=== PATIENT | female | born 2000 | race Two or more races ===

== ENCOUNTER 2024-12-11 17:20 | Emergency (ER) | payer OTHER, SELFPAY ==
[2024-12-11 17:21] VITALS: BMI 19.7
[2024-12-11 18:28] VITALS: BP 110/69; PULSE 80; RESP 18; TEMP 36.6; O2SAT 99
--- NOTE | 2024-12-11 18:36 | XR_ITS ---
Examination: Fingers, right hand second digit 3 views Technique: AP, oblique, lateral views right hand second digit 3 views. Exam date and time: December 11, 2024 1853 hrs. Indications: Basketball injury to the hand today with second digit pain. Findings: Acute 2 mm chip fracture, volar base middle phalanx second digit No dislocation Impression: Acute chip fracture base middle phalanx second digit
--- NOTE | 2024-12-11 18:42 | PD.EDHAND ---
Upper Extremity Injury RME/HPI General Chief Complaint: Hand/Wrist Problems Stated Complaint: RIGHT INDEX FINGER SPRAIN AT WORK Time Seen by Provider: 12/11/24 18:36 Arrival date/time: 12/11/24 17:20 24F with no significant PMH presents to ED with R index finger pain after a basketball jammed into it at work. Limitations: no limitations Related Data Previous Rx's ?Medication ?Instructions ?Recorded ferrous sulfate, dried 160 mg (50 160 mg PO TID #90 tabs 02/20/24 mg iron) tablet,extended release Allergies Allergy/AdvReac Type Severity Reaction Status Date / Time No Known Allergies Allergy Verified 12/11/24 17:23 Review of Systems Review of Systems Systems Reviewed: All systems reviewed, normal except as documented Constitutional Constitutional: Reports system reviewed and no additional complaints, except as documented, Denies fever(s) and Denies headache(s) ENT Ears, Nose, Mouth, and Throat: Denies disequilibrium and Denies headache(s) Cardiovascular Cardiovascular: Reports system reviewed and no additional complaints, except as documented, Denies chest pain and Denies dyspnea Respiratory Respiratory: Reports system reviewed and no additional complaints, except as documented, Denies cough and Denies dyspnea Gastrointestinal Gastrointestinal: Reports system reviewed and no additional complaints, except as documented, Denies abdominal pain, Denies nausea and Denies vomiting Musculoskeletal Musculoskeletal: Reports as per HPI and Reports arthralgias Neurologic Neurologic: Reports system reviewed and no additional complaints, except as documented, Denies confusion, Denies disequilibrium and Denies headache(s) Psychiatric Psychiatric: Denies confusion Past Medical History Past Medical History CARDIAC: Negative Cardiac Disorders or Congestive Heart Failure RESPIRATORY: Negative Chronic Obstructive Pulmonary Disease (COPD) or Asthma GASTROINTESTINAL: Positive Gastrointestinal Disorders (hiatal hernia) GENITOURINARY: Negative Renal Disease ENDOCRINE: Negative Diabetes Mellitus Type 1 or Diabetes Mellitus Type 2 HEMATOLOGIC: Negative Sickle Cell Disease Surgical History SURGICAL: Positive 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) Social History SMOKING STATUS: Never smoker ED Exam General Limitations: Present no limitations General appearance: Present alert and in no apparent distress Head Head exam: Present atraumatic Eye Eye exam: Present normal appearance, PERRL and EOMI ENT ENT exam: Present normal exam, normal oropharynx and mucous membranes moist Neck Neck exam: Present normal inspection, full ROM and trachea midline Chest Chest inspection: Present normal inspection and symmetric chest wall rise Respiratory Respiratory exam: Present normal lung sounds bilaterally Cardiovascular Cardiovascular exam: Present regular rate, normal rhythm and normal heart sounds Abdominal Exam Abdominal exam: Present soft and normal bowel sounds Extremities Exam Extremities exam: Present full ROM Expanded Upper Extremity Exam Hand exam: Present full ROM (R index), tenderness, swelling and ecchymosis Back Exam Back exam: Present normal inspection and full ROM Neurological Exam Neurological exam: Present alert, oriented X3 and CN II-XII intact Psychiatric Psychiatric exam: Present normal affect and normal mood Skin Skin exam: Present warm, dry, intact and normal color Course Quality Measures none Orders Category Date Time Status XR finger RT min 2V Stat Exams 12/11/24 18:36 Ordered Vital Signs Vital signs: Vital Signs Temperature 98 F 12/11/24 18:28 Pulse Rate 80 12/11/24 18:28 Respiratory Rate 18 12/11/24 18:28 Blood Pressure 110/69 12/11/24 18:28 Pulse Oximetry (%) 99 12/11/24 18:28 Oxygen Delivery Method Room Air 12/11/24 18:28 O2 at 99% on RA and WNLs Extremity Injury MDM Narrative MDM Narrative:: 24F with no significant PMH presents to ED with R index finger pain after a basketball jammed into it at work. Physical exam reveals R index finger swelling, bruising, and tenderness. ROM mostly intact. Patient is afebrile, calm, and alert. Patient data External records reviewed:: [facility] previous records Clinical information provided by:: patient Social determinants that could affect healthcare access:: none Patient has the following chronic illnesses:: none How is presenting disease/condition affected by chronic disease/condition?: no chronic disease Evaluation data The following diagnostics were reviewed and interpreted by me:: radiology exam(s) Lab and/or radiology exams considered but not ordered:: ordered Interpretation Summary: above Medications / Prescriptions Medications or Prescriptions considered but not ordered:: not ordered Medication administrations:: n/a Consultations Consultation(s) initiated? (list below): No Diagnosis Upper Extremity Injury Differential Diagnosis: sprain and strain of wrist, fracture of wrist, finger sprain, dislocation of finger, Colles' fracture, fracture of hand and other (finger fx) Admission Indicated Admission indicated?: not indicated Admission Request Was there a request for admission?: No Disposition Plan Disposition Plan: Discharge Discharge Attestation Discharge Attestation: The patient and all family members were given an opportunity to ask questions and understood the discharge instructions. Discharge instructions specifically effects, indications for sooner follow up or return to the emergency department, and the expected course of current diagnosis. Patient condition: Stable Discharge Plan Prescriptions/Referrals Prescriptions/Med Rec: No Action ferrous sulfate, dried 160 mg (50 mg iron) tablet extended release 160 mg PO TID Qty: 90 0RF Patient/Caregiver Discharge Instructions Print Language: Bhutanese
--- NOTE | 2024-12-11 18:49 | PD.EDRME ---
Rapid Medical Screening Exam RME Arrival date/time: 12/11/24 17:20 24F with no significant PMH presents to ED with R index finger pain after a basketball jammed into it at work. Patient wants to see another provider. Chief Complaint: Hand/Wrist Problems Time Seen by Provider: 12/11/24 18:36 Vital signs: Vital Signs Temperature 98 F 12/11/24 18:28 Pulse Rate 80 12/11/24 18:28 Respiratory Rate 18 12/11/24 18:28 Blood Pressure 110/69 12/11/24 18:28 Pulse Oximetry (%) 99 12/11/24 18:28 Oxygen Delivery Method Room Air 12/11/24 18:28
[2024-12-11 20:10] VITALS: BP 112/80; PULSE 76; RESP 17; TEMP 36.8; O2SAT 100
--- NOTE | 2024-12-11 22:47 | PD.EDHAND ---
Upper Extremity Injury RME/HPI General Chief Complaint: Hand/Wrist Problems Stated Complaint: RIGHT INDEX FINGER SPRAIN AT WORK Time Seen by Provider: 12/11/24 18:36 Arrival date/time: 12/11/24 17:20 RME / HPI RME / HPI narrative: 24F with no significant PMH presents to ED with R index finger pain after a basketball jammed into it at work. Patient wants to see another provider. Patient denies any other complaints. Incident happened today Related Data Previous Rx's ?Medication ?Instructions ?Recorded ferrous sulfate, dried 160 mg (50 160 mg PO TID #90 tabs 02/20/24 mg iron) tablet,extended release ibuprofen 800 mg tablet 800 mg PO Q8H PRN pain #30 tabs 12/11/24 Allergies Allergy/AdvReac Type Severity Reaction Status Date / Time No Known Allergies Allergy Verified 12/11/24 17:23 Review of Systems Review of Systems Narrative Review of Systems: Review of system reviewed and within normal limits except mentioned in HPI ED Exam Narrative Physical exam: VITAL SIGNS: Reviewed. GENERAL APPEARANCE: Alert and interactive, follows commands, no acute distress, HEAD AND FACE: Non-traumatic. ENT: PERRL, pink conjunctivitis, eyelid no trauma, Mucous membrane moist. NECK: Supple, nontender, no nuchal rigidity. CHEST: No tenderness, no crepitus, no paradoxical movement, no retractions. LUNGS: Clear, well ventilated, symmetric, no rales, no wheezing, no ronchi, no stridor, good breath sounds bilaterally. HEART: Regular rate, regular rhythm, no murmur, no gallops. ABDOMEN: Soft, positive bowel sounds, nondistended, no guarding, nontender, no rebound, no masses, RECTAL: Deferred. GENITAL: Deferred. NEUROLOGICAL: Gross motor function intact sensory function intact, Appropriate for age. MUSCULOSKELETAL: low back nontender, full range of motion. EXTREMITIES: Right index finger swelling, bruising with limitation of range of motion with tenderness, SKIN: Color pink, dry, no rash, no lacerations, no abrasions, no contusions. LYMPHATICS: Deferred. Course Quality Measures none Orders Category Date Time Status XR finger RT min 2V Stat Exams 12/11/24 18:36 Completed Vital Signs Vital signs: Vital Signs Temperature 98 F 12/11/24 18:28 Pulse Rate 80 12/11/24 18:28 Respiratory Rate 18 12/11/24 18:28 Blood Pressure 110/69 12/11/24 18:28 Pulse Oximetry (%) 99 12/11/24 18:28 Oxygen Delivery Method Room Air 12/11/24 18:28 Extremity Injury [facility] [place] Narrative [facility] [place] Narrative:: 24F with no significant PMH presents to ED with R index finger pain after a basketball jammed into it at work. Patient wants to see another provider. Patient denies any other complaints. Incident happened today X-ray of the hand showed chip fracture base of the middle phalanx index finger right. Results discussed with the patient. Finger splint applied distal neurovascular status intact post splinting. Patient data External records reviewed:: None Clinical information provided by:: patient and family Social determinants that could affect healthcare access:: none Patient has the following chronic illnesses:: None How is presenting disease/condition affected by chronic disease/condition?: no chronic disease Evaluation data The following diagnostics were reviewed and interpreted by me:: radiology exam(s) Lab and/or radiology exams considered but not ordered:: None Interpretation Summary: See results MDM Medications / Prescriptions Medications or Prescriptions considered but not ordered:: None Medication administrations:: None Consultations Consultation(s) initiated? (list below): No Diagnosis Upper Extremity Injury Differential Diagnosis: finger sprain and other (Finger dislocation finger fracture) Most likely diagnosis given after review of the tests above:: Finger fracture right index finger Admission Indicated Admission indicated?: not indicated Admission Request Was there a request for admission?: No Disposition Plan Disposition Plan: Discharge Discharge Attestation Discharge Attestation: The patient and all family members were given an opportunity to ask questions and understood the discharge instructions. Discharge instructions specifically effects, indications for sooner follow up or return to the emergency department, and the expected course of current diagnosis. Patient condition: Stable Discharge Plan Plan Patient Disposition: HOME (Self Care) Disposition Comment: stable Prescriptions/Referrals Prescriptions/Med Rec: New ibuprofen 800 mg tablet 800 mg PO Q8H PRN (Reason: pain) Qty: 30 0RF No Action ferrous sulfate, dried 160 mg (50 mg iron) tablet extended release 160 mg PO TID Qty: 90 0RF Referrals: Carlo Ayala MD [Primary Care Provider] - In 1 week Problem List Clinical Impression: Finger fracture Patient/Caregiver Discharge Instructions Education Materials: How [employer] He[facility], ED Fracture, Finger, Closed Additional Instructions: Thank you for the opportunity for serving you today. You are stable for discharged . You are advised to: Follow-up with your Worker's Comp. MD in 1 to 2 days Return to ED for worsening of symptoms Increase oral fluids Take medication as prescribed Wear your finger splint 12/03 for the next 4 weeks or until cleared by your Worker's CompAndreia CONSTANTINO Print Language: Macedonian Stand Alone Forms: Roseann Award Info., Patient Portal Info Letter DWAYNE/JONAH Supervising Physician DWAYNE/JONAH Supervising Physician: MD Edison
== END 2024-12-11 23:20 | disposition home or self-care (01) ==
PROVIDERS: Emergency Provider Emergency Medicine; PCP Family Medicine
DX: S62.620A Displaced fracture of middle phalanx of right index finger, initial encounter for closed fracture (principal); W21.05XA Struck by basketball, initial encounter; Y99.0 Civilian activity done for income or pay
CPT/HCPCS: 73140; 99283

== ENCOUNTER → 2024-12-17 | Outpatient (CLI) | payer MEDICAID, SELFPAY ==
--- NOTE | 2024-12-17 09:54 | XR_ITS ---
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 supine abdomen demonstrates nonobstructive bowel gas pattern Surgical clips upper left abdomen Patient swallowed thin barium with 21 spot fluoroscopic films of the esophagus and stomach Primary peristaltic esophageal waves Suspicious for ulceration distal wall of the esophagus measuring 25 mm Moderate esophageal hernia Moderate intermittent gastroesophageal reflux Gastric bypass with minimal gastric remnant Narrowing at the gastrojejunal junction but contrast enters into small bowel with no delayed emptying Normal small bowel loops with filling of the right colon on the 1 hour abdomen delayed film IMPRESSION: Suspicious for ulceration distal wall of the esophagus, recommend endoscopy follow-up Moderate intermittent gastroesophageal reflux Narrowing at the gastrojejunal junction but contrast enters into the small bowel with no delayed gastric emptying
== END | disposition home or self-care (01) ==
PROVIDERS: PCP Physician Assistant Medical; Referring Provider Nurse Practitioner Primary Care; Visit Provider Nurse Practitioner Primary Care
DX: K21.9 Gastro-esophageal reflux disease without esophagitis (principal); K22.2 Esophageal obstruction
CPT/HCPCS: 74240; 74248; A4699; A9270

== ENCOUNTER 2025-03-18 07:55 | Outpatient (RCR) | payer MEDICAID, SELFPAY | END 2025-03-19 23:59 | disposition home or self-care (01) | LOC: SCTC 07:55 | PROVIDERS: PCP Physician Assistant Medical; Referring Provider Physician Assistant Medical; Visit Provider Nurse Practitioner Family | DX: D50.9 Iron deficiency anemia, unspecified (principal); Z98.84 Bariatric surgery status; R12 Heartburn; K25.9 Gastric ulcer, unspecified as acute or chronic, without hemorrhage or perforation; K44.9 Diaphragmatic hernia without obstruction or gangrene; N92.0 Excessive and frequent menstruation with regular cycle | CPT/HCPCS: 99213; G0463 ==

== ENCOUNTER 2025-04-15 13:47 | Outpatient (RCR) | payer MEDICAID, SELFPAY | END 2025-04-19 23:59 | disposition home or self-care (01) | LOC: SCTC 13:47 | PROVIDERS: PCP Physician Assistant Medical; Referring Provider Physician Assistant Medical; Visit Provider Nurse Practitioner Family | DX: D50.9 Iron deficiency anemia, unspecified (principal); Z98.84 Bariatric surgery status; N92.0 Excessive and frequent menstruation with regular cycle; R12 Heartburn; K25.4 Chronic or unspecified gastric ulcer with hemorrhage; K29.70 Gastritis, unspecified, without bleeding; K44.9 Diaphragmatic hernia without obstruction or gangrene | CPT/HCPCS: 99212; G0463 ==

== ENCOUNTER 2025-05-13 13:02 | Outpatient (RCR) | payer MEDICAID, SELFPAY | END 2025-05-19 23:59 | disposition home or self-care (01) | LOC: SCTC 13:02 | PROVIDERS: PCP Physician Assistant Medical; Referring Provider Nurse Practitioner Family; Visit Provider Nurse Practitioner Family | DX: D50.9 Iron deficiency anemia, unspecified (principal); Z98.84 Bariatric surgery status; N92.0 Excessive and frequent menstruation with regular cycle; R12 Heartburn; K25.9 Gastric ulcer, unspecified as acute or chronic, without hemorrhage or perforation; K29.70 Gastritis, unspecified, without bleeding; K44.9 Diaphragmatic hernia without obstruction or gangrene | CPT/HCPCS: 96365; 96375; A4216; J1756; J2919; J3490; J7040 ==

== ENCOUNTER 2025-06-11 14:09 | Outpatient (RCR) | payer MEDICAID, SELFPAY | END 2025-06-19 23:59 | disposition home or self-care (01) | LOC: SCTC 14:09 | PROVIDERS: PCP Physician Assistant Medical; Referring Provider Physician Assistant Medical; Visit Provider Nurse Practitioner Family | DX: D50.9 Iron deficiency anemia, unspecified (principal); N92.0 Excessive and frequent menstruation with regular cycle; Z98.84 Bariatric surgery status | CPT/HCPCS: 96365; 96375; A4216; J1756; J2919; J3490; J7040 ==

== ENCOUNTER 2025-07-06 12:49 | Outpatient (RCR) | payer MEDICAID, SELFPAY | END 2025-07-19 23:59 | disposition home or self-care (01) | LOC: SCTC 12:49 | PROVIDERS: PCP Physician Assistant Medical; Referring Provider Physician Assistant Medical; Visit Provider Nurse Practitioner Family | DX: D50.9 Iron deficiency anemia, unspecified (principal); Z98.84 Bariatric surgery status; N92.0 Excessive and frequent menstruation with regular cycle; R12 Heartburn; K25.9 Gastric ulcer, unspecified as acute or chronic, without hemorrhage or perforation; K29.70 Gastritis, unspecified, without bleeding; K44.9 Diaphragmatic hernia without obstruction or gangrene | CPT/HCPCS: 99212; G0463 ==